=== PATIENT | male | born 1960 | race African-American/Black ===

== ENCOUNTER → 2021-02-11 | Outpatient (CLI) | payer BC, OTHER ==
[~2021-02-11] MED LIST: ALEVE220 MG PO; LIPITOR 20 MG T20 M1 PO; LOSARTAN-HCTZ1 EAC3 PO; NABUMETONE 750750 M1 PO; NORVASC10 MG PO; TOPROL XL50 MG PO
== END ==
LOC: ULTRA 09:06
PROVIDERS: ATTEND Family Medicine
DX: M79.604 Pain in right leg (principal); M25.461 Effusion, right knee